=== PATIENT | male | born 1965 | race Caucasian/White ===

== ENCOUNTER 2017-02-27 20:22 | Emergency (ER) | payer OTHER ==
[2017-02-27 20:35] VITALS: BP 116/80; BMI 27.4
--- NOTE | 2017-02-27 22:03 | PDOC ---
History of Present Illness - General Chief Complaint: Cold Symptoms Stated Complaint: COUGH, WEAKNESS Time Seen by Provider: 02/27/17 20:45 - History of Present Illness Initial Comments: 02/27/17 21:54 CHIEF COMPLAINT: HISTORY OF PRESENT ILLNESS: No recent travel or sick contacts. PAST MEDICAL HISTORY: Denies past medical history FAMILY HISTORY: Denies SOCIAL HISTORY: Lives at home with ____. Occupation: . Denies tobacco, alcohol, illicit drug use. SURGICAL HISTORY: Denies ALLERGIES: No known drug allergies REVIEW OF SYSTEMS General/Constitutional: Denies fever or chills. Denies weakness, weight change. HEENT: Denies change in vision. Denies ear pain or discharge. Denies sore throat. Cardiovascular: Denies chest pain or shortness of breath. Respiratory: Denies cough, wheezing, or hemoptysis. Gastrointestinal: Denies nausea, vomiting, diarrhea or constipation. Denies rectal bleeding. Genitourinary: Denies dysuria, frequency, or change in urination. Musculoskeletal: Denies joint or muscle swelling or pain. Denies neck or back pain. Skin and breasts: Denies rash or easy bruising. Neurologic: Denies headache, vertigo, loss of consciousness, or loss of sensation. Psychiatric: Denies depression or anxiety. Endocrine: Denies increased thirst. Denies abnormal weight change. Hematologic/Lymphatic: Denies anemia, easy bleeding, or history of blood clots. Allergic/Immunologic: Denies hives or skin allergy. Denies latex allergy. PHYSICAL EXAM General Appearance: Well-appearing, appropriately dressed. No apparent distress , no intoxication. HEENT: EOMI, PERRLA, normal ENT inspection, normal voice, TMs normal, pharynx normal. No conjunctival pallor. No photophobia, scleral icterus. Neck: Supple. Trachea midline. No tenderness, rigidity, carotid bruit, stridor , lymphadenopathy, or thyromegaly. Respiratory/Chest: Lungs CTAB. No shortness of breath, chest tenderness, respiratory distress, accessory muscle use. No crackles, rales, rhonchi, stridor , wheezing, dullness Cardiovascular: RRR. S1, S2. No JVD, murmur, bradycardia, tachycardia. Vascular Pulses: Dorsalis-Pedis (R): 2+, Dorsalis-Pedis (L): 2+ Gastrointestinal/Abdominal: Normal bowel sounds. Abdomen soft, non-distended. No tenderness or rebound tenderness. No organomegaly, pulsatile mass, guarding , hernia, hepatomegaly, splenomegaly. Lymphatic: No adenopathy, tenderness. Musculoskeletal/Extremities: Normal inspection. FROM of all extremities, normal capillary refill. Pelvis Stable. No CVA tenderness. No tenderness to extremities, pedal edema, swelling, erythema or deformity. Integumentary: Appropriate color, dry, warm. 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 Fully oriented, alert. Appropriate mood/affect. Motor strength 5/5. No appreciable EOM palsy, facial droop or sensory deficit. Past History - Past Medical History Allergies/Adverse Reactions: Allergies Allergy/AdvReac Type Severity Reaction Status Date / Time amoxicillin [Amoxicillin] Allergy Mild Verified 02/27/17 20:30 ciprofloxacin [From Cipro] Allergy Verified 02/27/17 20:30 Home Medications: Ambulatory Orders Sodium Polystyrene Sulfon/Sorb [Kionex 15 gm/60 ml Suspension] 15 gm PO ASDIR Metoprolol Tartrate [Lopressor -] 25 mg PO BID 09/20/11 Aspirin [ASA -] 81 mg PO DAILY #0 tab.chew 11/16/12 Oseltamivir Phosphate [Tamiflu] 75 mg PO BID #10 capsule 02/27/17 Cardiac Disorders: Yes (mitral valve prolapse, muscular dystrophy, high potassium) HTN: Yes - Immunization History Immunization Up to Date: Yes - Suicide/Smoking/Psychosocial Hx Smoking Status: No Smoking History: Never smoked Have you smoked in the past 12 months: No Number of Cigarettes Smoked Daily: 0 Hx Alcohol Use: No Drug/Substance Use Hx: No Substance Use Type: None Hx Substance Use Treatment: No *Physical Exam - Vital Signs Last Vital Signs Temp Pulse Resp BP Pulse Ox 116/80 93 L 02/27/17 20:30 02/27/17 20:30 *DC/Admit/Observation/Transfer Diagnosis at time of Disposition: Influenza A - Discharge Dispostion Disposition: HOME Condition at time of disposition: Stable Admit: No - Prescriptions Prescriptions: Oseltamivir Phosphate [Tamiflu] 75 mg PO BID #10 capsule - Referrals Referrals: Sai Harkins MD [Primary Care Provider] - - Patient Instructions Printed Discharge Instructions: DI for Influenza -- Adult Additional Instructions: Please take medication as prescribed. Follow up with Dr. Harkins THIS WEEK for further monitoring. If you develop any fever unrelieved by Motrin or Tylenol, difficulty breathing, chest pain, vomiting, diarrhea, or any new or worsening symptoms, please return to the ER. - Post Discharge Activity
== END 2017-02-27 22:15 | disposition home or self-care (01) ==
LOC: JERFT 20:22
DX: J10.1 Influenza due to other identified influenza virus with other respiratory manifestations (principal); I10 Essential (primary) hypertension; G71.0 Muscular dystrophy
CPT/HCPCS: 87804; 99281-25

== ENCOUNTER 2018-10-24 15:36 | Emergency (ER) | payer OTHER ==
--- NOTE | 2018-10-24 15:42 | PDOC ---
Rapid Medical Evaluation Time Seen by Provider: 10/24/18 15:37 Medical Evaluation: Allergies Allergy/AdvReac Type Severity Reaction Status Date / Time amoxicillin [Amoxicillin] Allergy Mild Verified 02/27/17 20:30 ciprofloxacin [From Cipro] Allergy Verified 02/27/17 20:30 10/24/18 15:38 HPI: Mechanical fall at home No LOC nausea or vomiting PE:Superficial lac L eyebrow ORDERS: Nothing Discharge Disposition - Diagnosis Fall - Referrals - Patient Instructions - Post Discharge Activity
[2018-10-24 15:46] VITALS: BP 137/86; PULSE 82; TEMP 97.8; BMI 28.5
[2018-10-24] MEDS ORDERED: DIPHTH,PERTUSS(ACELL),TET 0.5 ML DISP.SYRIN IM ONE ×2 (17:08→17:23)
[2018-10-24] MEDS ORDERED: LIDOCAINE HCL 2% (50ML VIAL) SQ ONE (17:09)
--- NOTE | 2018-10-24 17:48 | PDOC ---
History of Present Illness - General Chief Complaint: Injury Stated Complaint: HEAD INJURY/LAC Time Seen by Provider: 10/24/18 15:37 History Source: Patient Exam Limitations: No Limitations - History of Present Illness Initial Comments: 10/24/18 17:43 56 yo M w/ a h/o muscular dystrophy, HTN, L eye blindness comes in for evaluation of L eyebrow laceration. He tripped over his sandals, landed on the floor face down, at home, witnessed by mother; hitting his L eyebrow on the concrete floor. No LOC, no dizziness, no Chest pain, no SOB before or after incident, it was purely a mechanical fall. No other injuries, no pain anywhere, no active bleeding. Pt not on AC Last tetanus unknown Past History - Past Medical History Allergies/Adverse Reactions: Allergies Allergy/AdvReac Type Severity Reaction Status Date / Time amoxicillin [Amoxicillin] Allergy Mild Verified 10/24/18 15:38 ciprofloxacin [From Cipro] Allergy Verified 10/24/18 15:38 Home Medications: Ambulatory Orders Metoprolol Tartrate [Lopressor -] 25 mg PO BID 09/20/11 Sodium Polystyrene Sulfonate [Kayexalate] 45 gm PO DAILY 10/24/18 Cardiac Disorders: Yes (mitral valve prolapse, , high potassium) COPD: No HTN: Yes Other medical history: muscular dystrophy - Immunization History Immunization Up to Date: Yes - Suicide/Smoking/Psychosocial Hx Smoking Status: No Smoking History: Never smoked Have you smoked in the past 12 months: No Number of Cigarettes Smoked Daily: 0 Information on smoking cessation initiated: No Hx Alcohol Use: No Drug/Substance Use Hx: No Substance Use Type: None Hx Substance Use Treatment: No Review of Systems - Review of Systems Able to Perform ROS?: Yes Constitutional: No: Chills, Fever, Malaise, Night Sweats HEENTM: No: Eye Pain, Recent change in vision, Throat Pain Respiratory: No: Cough, Shortness of Breath Cardiac (ROS): No: Chest Pain, Palpitations, Chest Tightness ABD/GI: No: Diarrhea, Nausea, Vomiting, Abdominal cramping : No: Dysuria, Hematuria Musculoskeletal: No: Back Pain Integumentary: No: Rash Neurological: No: Headache, Numbness, Dizziness Psychiatric: No: Change in Appetite Endocrine: No: Unexplained Weight Loss *Physical Exam - Vital Signs Last Vital Signs Temp Pulse Resp BP Pulse Ox 97.8 F 82 18 137/86 94 L 10/24/18 15:39 10/24/18 15:39 10/24/18 15:39 10/24/18 15:39 10/24/18 15:39 - Physical Exam General Appearance: Yes: Nourished. No: Apparent Distress HEENT: positive: Normal Voice, Other (L eye blindness, L eyebrow with 2cm partial thickness linear laceration with edges well approximated, no active bleeding now, (+)superior small abrasion. No periorbital edema/erythema/ tenderness). negative: Pale Conjunctivae, Scleral Icterus (R), Scleral Icterus (L) Neck: positive: Supple. negative: Decreased range of motion, Tender midline Respiratory/Chest: negative: Respiratory Distress, Accessory Muscle Use Cardiovascular: positive: Regular Rate Musculoskeletal: positive: Normal Inspection. negative: Decreased Range of Motion Integumentary: positive: Normal Color, Dry. negative: Jaundice, Rash Neurologic: positive: Fully Oriented, Alert, Normal Mood/Affect Procedures - Laceration/Wound Repair Left Face Wound Length: to 2.5 cm Wound Explored: clean Wound's Depth, Shape: into muscle, linear Irrigated w/ Saline: Yes Betadine Prep: Yes Anesthesia: 1% Lidocaine Amount of Anesthetic (ccs): 1 Wound Repaired With: Sutures Suture Size/Type: 6:0 Number of Sutures: 3 Layer Closure: No Sterile Dressing Applied: Yes ED Treatment Course - Medications Given in the ED: ED Medications Discontinued Medications Generic Name Dose Route Start Last Admin Trade Name Blakeq PRN Reason Stop Dose Admin Diphtheria/Tetanus/Acell Pertussis 0.5 ml 10/24/18 17:08 10/24/18 17:31 Boostrix - IM 10/24/18 17:09 0.5 ml .ONCE ONE Administration Lidocaine HCl 1 mg 10/24/18 17:09 10/24/18 17:25 Xylocaine 2% SQ 10/24/18 17:10 1 mg ONCE ONE Administration Medical Decision Making - Medical Decision Making 10/24/18 17:48 53 yo M w/ L eyebrow laceration s/p trip anf fall, purely mechanical. Pt not on AC, no LOC, no hematoma, no indication for head CT. 2cm lac repaired using three 6-0 nylon simple interrupted sutures. Keep the wound clean and dry at all times REturn for worsening/concerning symptoms Return in 5 days for suture removal Bacitracin for the first 24-48hrs only Pt verbalizes understanding and agrees with plan 10/24/18 18:26 *DC/Admit/Observation/Transfer Diagnosis at time of Disposition: Immunization, tetanus toxoid Fall Qualifiers: Encounter type: initial encounter Qualified Code(s): W19.XXXA - Unspecified fall, initial encounter Eyebrow laceration Qualifiers: Encounter type: initial encounter Laterality: left Qualified Code(s): S01.112A - Laceration without foreign body of left eyelid and periocular area, initial encounter - Discharge Dispostion Disposition: HOME Condition at time of disposition: Stable - Referrals Referrals: Sai Harkins MD [Primary Care Provider] - - Patient Instructions Printed Discharge Instructions: DI for Laceration Repair Additional Instructions: Make a follow up appointment with your PMD, return in 5 days for suture removal. Keep the wound clean and dry at all times. APply bacitracin only for the first 48 hours. Return for worsening/concerning symptoms. - Post Discharge Activity
== END 2018-10-24 17:55 | disposition home or self-care (01) ==
LOC: JERFT 15:36
PROC: 0JQ10ZZ Repair Face Subcutaneous Tissue and Fascia, Open Approach (ICD-10-PCS; principal; 2018-10-24)
PROC: 3E0234Z Introduction of Serum, Toxoid and Vaccine into Muscle, Percutaneous Approach (ICD-10-PCS; 2018-10-24)
PROC: 3E023BZ Introduction of Anesthetic Agent into Muscle, Percutaneous Approach (ICD-10-PCS; 2018-10-24)
PROC: 3E0234Z Introduction of Serum, Toxoid and Vaccine into Muscle, Percutaneous Approach (ICD-10-PCS; 2018-10-24)
DX: S01.112A Laceration without foreign body of left eyelid and periocular area, initial encounter (principal); W01.198A Fall on same level from slipping, tripping and stumbling with subsequent striking against other object, initial encounter; Y93.89 Activity, other specified; Y92.038 Other place in apartment as the place of occurrence of the external cause; Y99.8 Other external cause status; G71.00 Muscular dystrophy, unspecified; H54.62 Unqualified visual loss, left eye, normal vision right eye; I10 Essential (primary) hypertension
CPT/HCPCS: 12011-25; 90471; 90715; 96372; 99281-25

== ENCOUNTER 2018-10-29 10:12 | Emergency (ER) | payer OTHER ==
[2018-10-29 10:20] VITALS: BP 145/84; PULSE 63; TEMP 98; BMI 28.1
--- NOTE | 2018-10-29 11:13 | PDOC ---
Suture Removal/Wound Check HPI - History of Present Illness Chief Complaint: Suture/Staple Removal(Here) Stated Complaint: STITCHES REMOVAL Time Seen by Provider: 10/29/18 10:57 Date of Last ED visit: 10/24/18 - Previous ED Treatment Type of procedure performed on last visit: Yes: Laceration Repair Tetanus Immunization: Yes: Given at last ED visit Antibiotics Prescribed: No - Onset of Previous Treatment Date of Occurence: 10/24/18 Comment:: 10/29/18 11:14 Wound well-approximated, no erythema, swelling, tenderness to suture site. 3 stitches removed without complications. Past History - Past Medical History Allergies/Adverse Reactions: Allergies Allergy/AdvReac Type Severity Reaction Status Date / Time amoxicillin [Amoxicillin] Allergy Mild Verified 10/29/18 10:20 ciprofloxacin [From Cipro] Allergy Verified 10/29/18 10:20 Home Medications: Ambulatory Orders Metoprolol Tartrate [Lopressor -] 25 mg PO BID 09/20/11 Sodium Polystyrene Sulfonate [Kayexalate] 45 gm PO DAILY 10/24/18 Cardiac Disorders: Yes (mitral valve prolapse, , high potassium) COPD: No HTN: Yes - Immunization History Immunization Up to Date: Yes - Suicide/Smoking/Psychosocial Hx Smoking Status: No Smoking History: Never smoked Have you smoked in the past 12 months: No Number of Cigarettes Smoked Daily: 0 Hx Alcohol Use: No Drug/Substance Use Hx: No Substance Use Type: None Hx Substance Use Treatment: No *Physical Exam - Vital Signs Last Vital Signs Temp Pulse Resp BP Pulse Ox 98 F 63 18 145/84 97 10/29/18 10:16 10/29/18 10:16 10/29/18 10:16 10/29/18 10:16 10/29/18 10:16 *DC/Admit/Observation/Transfer Diagnosis at time of Disposition: Visit for suture removal - Discharge Dispostion Disposition: HOME Condition at time of disposition: Stable Decision to Admit order: No - Referrals - Patient Instructions Printed Discharge Instructions: DI for Suture Removal - Post Discharge Activity
== END 2018-10-29 11:29 | disposition home or self-care (01) ==
LOC: JERFT 10:12
DX: Z48.817 Encounter for surgical aftercare following surgery on the skin and subcutaneous tissue (principal); Z48.02 Encounter for removal of sutures
CPT/HCPCS: 99281-25

== ENCOUNTER 2020-05-13 20:25 | Inpatient (IN) | payer OTHER ==
[2020-05-13] MEDS ORDERED: ACETAMINOPHEN 500 MG TABLET (FP) PO ONE (21:02)
[2020-05-13] MEDS ORDERED: DEXAMETHASONE SOD PHOSPHATE 4 MG/1 ML VIAL IVPUSH ONE (21:02)
[2020-05-13] MEDS ORDERED: DEXAMETHASONE SOD PHOSPHATE 10 MG/1 ML VIAL ONE (21:30)
[2020-05-13] MEDS ORDERED: ACETAMINOPHEN 325 MG TABLET (FP) ONE (21:30)
[2020-05-13] MEDS ORDERED: SODIUM CHLORIDE 1,000 ML IV STA (21:33)
[2020-05-13 21:54] LABS: BASO % 0.1 % (0-2.0); EOS % 0.1 % (0-4.5); HEMATOCRIT 45.5 % (35.4-49); HEMOGLOBIN 14.7 GM/dL (11.7-16.9); LYMPH % 12.5 % (8-40); MCH 25.9 pg (25.7-33.7); MCHC 32.3 g/dl (32.0-35.9); MEAN CELL VOLUME 80.2 fl (80-96); MEAN PLT VOLUME 10.4 fl (7.5-11.1); MONO % 5.7 % (3.8-10.2); NEUT % 81.6 % (42.8-82.8); PLATELET COUNT 163 K/MM3 (134-434); RBC 5.67 M/mm3 (4.00-5.60); RDW 14.4 % (11.9-15.9)
[2020-05-13 22:02] LABS: INR 1.15 (0.83-1.09); PROTHROMBIN TIME (PATIENT) 13.8 SEC (9.7-13.0)
[2020-05-13 22:26] LABS: LDH 556 U/L (87-246)
[2020-05-13 22:28] LABS: VENOUS O2 SATURATION 74.3 % (70-80); VENOUS PCO2 46.9 mmHg (38-52); VENOUS PH 7.36 (7.310-7.410)
[2020-05-13 22:37] LABS: ALBUMIN 3.3 g/dl (3.4-5.0); ALK PHOS 178 U/L (45-117); ANION GAP 5 MMOL/L (8-16); BILIRUBIN,DIRECT 0.3 mg/dL (0.0-0.2); BILIRUBIN,TOTAL 0.5 mg/dL (0.2-1); BLOOD UREA NITROGEN 14.7 mg/dL (7-18); CALCIUM 8.3 mg/dL (8.5-10.1); CHLORIDE 106 mmol/L (98-107); CO2 28 mmol/L (21-32); CREATININE 0.7 mg/dL (0.55-1.3); GLUCOSE,RANDOM 116 mg/dL (74-106); POTASSIUM 4.2 mmol/L (3.5-5.1); SGOT/AST 111 U/L (15-37); SGPT/ALT 73 U/L (13-61); SODIUM 139 mmol/L (136-145); TOT PROT 6.7 g/dl (6.4-8.2)
[2020-05-13] MEDS ORDERED: ENOXAPARIN NA (PORCINE) 60 MG/0.6 ML DISP.SYRIN SQ SCH (23:15)
[2020-05-14] MEDS: ENOXAPARIN NA (PORCINE) 80 MG/0.8 ML DISP.SYRIN SQ SCH ×3 (01:04→21:33)
[2020-05-14 02:04] LABS: EPI CELLS 22 /uL (0-25.1); HYALINE CASTS 14 /uL (0-3.1); PH,URINE 5.5 (5.0-8.0); URINE APPEARANCE CLOUDY; URINE BACTERIA 12 /uL (0-1359); URINE BILIRUBIN 2+ (NEGATIVE); URINE COLOR DK YELLOW; URINE GLUCOSE (UA) NEGATIVE (NEGATIVE); URINE KETONE TRACE (NEGATIVE); URINE LEUK ESTERASE NEGATIVE (NEGATIVE); URINE NITRITE NEGATIVE (NEGATIVE); URINE PROTEIN 2+ (NEGATIVE); URINE RBC 14 /uL (0-23.9); URINE WBC 17 /uL (0-25.8)
[2020-05-14 06:29] LABS: BASO % 0.2 % (0-2.0); HEMATOCRIT 42.3 % (35.4-49); HEMOGLOBIN 13.8 GM/dL (11.7-16.9); LYMPH % 13.6 % (8-40); MCH 26.1 pg (25.7-33.7); MCHC 32.6 g/dl (32.0-35.9); MEAN CELL VOLUME 80.3 fl (80-96); MEAN PLT VOLUME 9.3 fl (7.5-11.1); MONO % 2.3 % (3.8-10.2); NEUT % 83.9 % (42.8-82.8); PLATELET COUNT 148 K/MM3 (134-434); RBC 5.26 M/mm3 (4.00-5.60); RDW 14.4 % (11.9-15.9); WHITE BLOOD COUNT 2.1 K/mm3 (4.0-10.0)
[2020-05-14 07:05] LABS: POTASSIUM 4.4 mmol/L (3.5-5.1)
[2020-05-14 07:09] LABS: ALBUMIN 2.8 g/dl (3.4-5.0); BLOOD UREA NITROGEN 15.3 mg/dL (7-18); CALCIUM 8.1 mg/dL (8.5-10.1)
[2020-05-14 07:11] LABS: MAGNESIUM 2.3 mg/dL (1.8-2.4)
[2020-05-14 07:12] LABS: CREATININE 0.6 mg/dL (0.55-1.3)
[2020-05-14 07:15] LABS: BILIRUBIN,TOTAL 0.6 mg/dL (0.2-1); TOT PROT 5.9 g/dl (6.4-8.2)
[2020-05-14] MEDS ORDERED: PT OWN MED DRAWER 7, Y5N ONE (08:46)
[2020-05-14] MEDS: ASCORBIC ACID 500 MG TABLET (FP) PO SCH ×2 (10:02→21:33)
[2020-05-14] MEDS: ZINC SULFATE 220 MG CAPSULE (FP) PO SCH (10:02)
[2020-05-14] MEDS: METOPROLOL TARTRATE 25 MG TABLET (FP) PO SCH ×2 (10:02→21:33)
[2020-05-14] MEDS: CHOLECALCIFEROL (VIT D3) 5000 UNITS (125 MCG) CAP PO SCH (10:03)
[2020-05-14] MEDS: DEXAMETHASONE SOD PHOSPHATE 4 MG/1 ML VIAL IVPUSH SCH (10:03)
[2020-05-14] MEDS: FAMOTIDINE 20 MG TABLET PO SCH ×3 (10:04→21:33)
[2020-05-14] MEDS ORDERED: REMDESIVIR 200 MG in SODIUM CHLORIDE 210 ML IVPB ONE (15:00)
[2020-05-14] MEDS ORDERED: ACETAMINOPHEN 325 MG TABLET (FP) PO PRN (15:16)
[2020-05-15 07:35] LABS: HEMATOCRIT 44.1 % (35.4-49); HEMOGLOBIN 14.2 GM/dL (11.7-16.9); MCH 25.9 pg (25.7-33.7); MCHC 32.1 g/dl (32.0-35.9); MEAN CELL VOLUME 80.7 fl (80-96); MEAN PLT VOLUME 10.2 fl (7.5-11.1); PLATELET COUNT 196 K/MM3 (134-434); RBC 5.47 M/mm3 (4.00-5.60); RDW 14.1 % (11.9-15.9); WHITE BLOOD COUNT 4.3 K/mm3 (4.0-10.0)
[2020-05-15 07:49] LABS: POTASSIUM 5.1 mmol/L (3.5-5.1)
[2020-05-15 07:59] LABS: CALCIUM 8.7 mg/dL (8.5-10.1)
[2020-05-15 08:00] LABS: BLOOD UREA NITROGEN 15.2 mg/dL (7-18)
[2020-05-15 08:04] LABS: BILIRUBIN,TOTAL 0.4 mg/dL (0.2-1); CREATININE 0.5 mg/dL (0.55-1.3); TOT PROT 6.2 g/dl (6.4-8.2)
[2020-05-15] MEDS ORDERED: PT OWN MED DRAWER 7, Y5N ONE (08:56)
[2020-05-15] MEDS: ENOXAPARIN NA (PORCINE) 80 MG/0.8 ML DISP.SYRIN SQ SCH ×2 (09:45→21:11)
[2020-05-15] MEDS: ZINC SULFATE 220 MG CAPSULE (FP) PO SCH (09:45)
[2020-05-15] MEDS: ASCORBIC ACID 500 MG TABLET (FP) PO SCH ×2 (09:45→21:11)
[2020-05-15] MEDS: FAMOTIDINE 20 MG TABLET PO SCH ×2 (09:45→21:11)
[2020-05-15] MEDS: CHOLECALCIFEROL (VIT D3) 5000 UNITS (125 MCG) CAP PO SCH (09:45)
[2020-05-15] MEDS: METOPROLOL TARTRATE 25 MG TABLET (FP) PO SCH ×2 (09:45→21:11)
[2020-05-15] MEDS: DEXAMETHASONE SOD PHOSPHATE 4 MG/1 ML VIAL IVPUSH SCH (09:46)
[2020-05-15 13:19] VITALS: BMI 27.4
[2020-05-15] MEDS: REMDESIVIR 100 MG in SODIUM CHLORIDE 230 ML IVPB SCH (16:34)
[2020-05-16 07:40] LABS: HEMATOCRIT 42.6 % (35.4-49); HEMOGLOBIN 13.8 GM/dL (11.7-16.9); MCH 26.2 pg (25.7-33.7); MCHC 32.4 g/dl (32.0-35.9); MEAN CELL VOLUME 80.8 fl (80-96); PLATELET COUNT 205 K/MM3 (134-434); RBC 5.27 M/mm3 (4.00-5.60); RDW 14.1 % (11.9-15.9); WHITE BLOOD COUNT 2.9 K/mm3 (4.0-10.0)
[2020-05-16 07:58] LABS: ALBUMIN 2.8 g/dl (3.4-5.0); BILIRUBIN,TOTAL 0.5 mg/dL (0.2-1); BLOOD UREA NITROGEN 20.1 mg/dL (7-18); CALCIUM 8.3 mg/dL (8.5-10.1); TOT PROT 5.7 g/dl (6.4-8.2)
[2020-05-16 08:00] LABS: CREATININE 0.5 mg/dL (0.55-1.3)
[2020-05-16] MEDS: DEXAMETHASONE SOD PHOSPHATE 4 MG/1 ML VIAL IVPUSH SCH (10:21)
[2020-05-16] MEDS: ASCORBIC ACID 500 MG TABLET (FP) PO SCH ×2 (10:24→21:10)
[2020-05-16] MEDS: ZINC SULFATE 220 MG CAPSULE (FP) PO SCH (10:24)
[2020-05-16] MEDS: FAMOTIDINE 20 MG TABLET PO SCH ×2 (10:24→21:10)
[2020-05-16] MEDS: METOPROLOL TARTRATE 25 MG TABLET (FP) PO SCH ×2 (10:24→21:10)
[2020-05-16] MEDS: CHOLECALCIFEROL (VIT D3) 5000 UNITS (125 MCG) CAP PO SCH (10:24)
[2020-05-16] MEDS: ENOXAPARIN NA (PORCINE) 80 MG/0.8 ML DISP.SYRIN SQ SCH ×2 (10:24→21:10)
[2020-05-16 12:20] LABS: POTASSIUM 4.2 mmol/L (3.5-5.1)
[2020-05-16 12:22] LABS: ALBUMIN 2.7 g/dl (3.4-5.0); BLOOD UREA NITROGEN 22.8 mg/dL (7-18); CALCIUM 8.5 mg/dL (8.5-10.1)
[2020-05-16 12:25] LABS: CREATININE 0.5 mg/dL (0.55-1.3)
[2020-05-16 12:27] LABS: BILIRUBIN,TOTAL 0.4 mg/dL (0.2-1); TOT PROT 5.6 g/dl (6.4-8.2)
[2020-05-16] MEDS: REMDESIVIR 100 MG in SODIUM CHLORIDE 230 ML IVPB SCH (15:04)
[2020-05-17 07:58] LABS: BASO % 0.1 % (0-2.0); HEMATOCRIT 41.9 % (35.4-49); HEMOGLOBIN 13.7 GM/dL (11.7-16.9); LYMPH % 13.6 % (8-40); MCHC 32.8 g/dl (32.0-35.9); MEAN CELL VOLUME 79.2 fl (80-96); MONO % 14.9 % (3.8-10.2); NEUT % 71.4 % (42.8-82.8); PLATELET COUNT 229 K/MM3 (134-434); RBC 5.29 M/mm3 (4.00-5.60); RDW 14.2 % (11.9-15.9); WHITE BLOOD COUNT 3.3 K/mm3 (4.0-10.0)
[2020-05-17 08:16] LABS: POTASSIUM 4.4 mmol/L (3.5-5.1)
[2020-05-17 08:25] LABS: BILIRUBIN,TOTAL 0.4 mg/dL (0.2-1)
[2020-05-17 08:26] LABS: TOT PROT 5.6 g/dl (6.4-8.2)
[2020-05-17 08:27] LABS: ALBUMIN 2.7 g/dl (3.4-5.0); BLOOD UREA NITROGEN 19.1 mg/dL (7-18); CALCIUM 8.4 mg/dL (8.5-10.1)
[2020-05-17 08:29] LABS: CREATININE 0.5 mg/dL (0.55-1.3)
[2020-05-17] MEDS ORDERED: PT OWN MED DRAWER 7, Y5N ONE (09:05)
[2020-05-17] MEDS: DEXAMETHASONE SOD PHOSPHATE 4 MG/1 ML VIAL IVPUSH SCH (10:32)
[2020-05-17] MEDS: CHOLECALCIFEROL (VIT D3) 5000 UNITS (125 MCG) CAP PO SCH (10:33)
[2020-05-17] MEDS: ENOXAPARIN NA (PORCINE) 80 MG/0.8 ML DISP.SYRIN SQ SCH ×2 (10:33→22:29)
[2020-05-17] MEDS: ASCORBIC ACID 500 MG TABLET (FP) PO SCH ×2 (10:33→22:29)
[2020-05-17] MEDS: FAMOTIDINE 20 MG TABLET PO SCH ×2 (10:33→22:29)
[2020-05-17] MEDS: METOPROLOL TARTRATE 25 MG TABLET (FP) PO SCH ×2 (10:33→22:29)
[2020-05-17] MEDS: ZINC SULFATE 220 MG CAPSULE (FP) PO SCH (10:33)
[2020-05-17] MEDS: REMDESIVIR 100 MG in SODIUM CHLORIDE 230 ML IVPB SCH (14:11)
[2020-05-18 07:53] LABS: HEMATOCRIT 43.9 % (35.4-49); HEMOGLOBIN 14.4 GM/dL (11.7-16.9); MCH 26.2 pg (25.7-33.7); MCHC 32.9 g/dl (32.0-35.9); MEAN CELL VOLUME 79.7 fl (80-96); MEAN PLT VOLUME 10.2 fl (7.5-11.1); PLATELET COUNT 232 K/MM3 (134-434); RBC 5.51 M/mm3 (4.00-5.60); RDW 14.2 % (11.9-15.9); WHITE BLOOD COUNT 3.7 K/mm3 (4.0-10.0)
[2020-05-18 08:16] LABS: POTASSIUM 4.9 mmol/L (3.5-5.1)
[2020-05-18 08:21] LABS: CALCIUM 8.5 mg/dL (8.5-10.1)
[2020-05-18 08:22] LABS: ALBUMIN 2.9 g/dl (3.4-5.0); BLOOD UREA NITROGEN 17.9 mg/dL (7-18)
[2020-05-18 08:25] LABS: CREATININE 0.5 mg/dL (0.55-1.3)
[2020-05-18 08:26] LABS: BILIRUBIN,TOTAL 0.5 mg/dL (0.2-1)
[2020-05-18 08:27] LABS: TOT PROT 5.7 g/dl (6.4-8.2)
[2020-05-18] MEDS ORDERED: PT OWN MED DRAWER 7, Y5N ONE (09:15)
[2020-05-18] MEDS: ENOXAPARIN NA (PORCINE) 80 MG/0.8 ML DISP.SYRIN SQ SCH (09:27)
[2020-05-18] MEDS: ZINC SULFATE 220 MG CAPSULE (FP) PO SCH (09:28)
[2020-05-18] MEDS: CHOLECALCIFEROL (VIT D3) 5000 UNITS (125 MCG) CAP PO SCH (09:28)
[2020-05-18] MEDS: METOPROLOL TARTRATE 25 MG TABLET (FP) PO SCH (09:28)
[2020-05-18] MEDS: FAMOTIDINE 20 MG TABLET PO SCH (09:28)
[2020-05-18] MEDS: ASCORBIC ACID 500 MG TABLET (FP) PO SCH (09:28)
[2020-05-18] MEDS: DEXAMETHASONE SOD PHOSPHATE 4 MG/1 ML VIAL IVPUSH SCH (09:29)
[2020-05-18] MEDS: REMDESIVIR 100 MG in SODIUM CHLORIDE 230 ML IVPB SCH (14:11)
[2020-05-18 19:49] VITALS: BP 112/50; PULSE 66; TEMP 98
== END 2020-05-18 20:00 | DRG 177 ==
LOC: JER 20:25 → JERBED 22:07 → J4W 05-14 04:35
PROVIDERS: ADMIT Internal Medicine; ATTEND Internal Medicine
PROC: XW033E5 Introduction of Remdesivir Anti-infective into Peripheral Vein, Percutaneous Approach, New Technology Group 5 (ICD-10-PCS; principal; 2020-05-14)
DX: U07.1 COVID-19 (principal); J12.82 Pneumonia due to coronavirus disease 2019; J96.01 Acute respiratory failure with hypoxia; I24.8 Other forms of acute ischemic heart disease; I10 Essential (primary) hypertension; G71.00 Muscular dystrophy, unspecified; R94.5 Abnormal results of liver function studies; E78.5 Hyperlipidemia, unspecified; R53.1 Weakness; I45.10 Unspecified right bundle-branch block
CPT/HCPCS: 36415; 70450-TC; 71045-TC-FY; 80053; 81003; 82248; 82308; 82550; 82553; 82728; 82803; 83605; 83615; 83735; 84484; 85025; 85027; 85379; 85384; 85610; 85730; 86140; 86769; 87040; 87086; 87186; 87804; 93005; 93010; 94761; 97116-GP; 97162-GP; 99285-25; C9399; C9803; U0003; U0005

== ENCOUNTER 2020-08-12 16:06 | Emergency (ER) | payer OTHER ==
[2020-08-12 16:33] VITALS: BP 153/90; PULSE 82; TEMP 98.5; BMI 26.9
[2020-08-12] MEDS ORDERED: IBUPROFEN 600 MG TABLET (FP) PO ONE (17:22)
== END 2020-08-12 17:54 | disposition home or self-care (01) ==
LOC: JER 16:06 → JERFT 16:06
PROC: 0HQ1XZZ Repair Face Skin, External Approach (ICD-10-PCS; principal; 2020-08-12)
DX: S01.112A Laceration without foreign body of left eyelid and periocular area, initial encounter (principal); S09.90XA Unspecified injury of head, initial encounter
CPT/HCPCS: 99283-25

== ENCOUNTER 2020-08-19 14:26 | Emergency (ER) | payer OTHER ==
[2020-08-19 14:35] VITALS: BP 137/91; PULSE 78; TEMP 98; BMI 26.6
== END 2020-08-19 15:20 | disposition home or self-care (01) ==
LOC: JERFT 14:26
DX: Z48.02 Encounter for removal of sutures (principal)
CPT/HCPCS: 99281-25

== ENCOUNTER 2024-09-23 10:51 | Emergency (ER) | payer OTHER ==
[2024-09-23 11:12] VITALS: BP 123/100; PULSE 54; RESP 20; TEMP 98.4; BMI 25.8
[2024-09-23] MEDS ORDERED: IBUPROFEN 400 MG TABLET (FP) PO ONE (12:14)
[2024-09-23] MEDS ORDERED: ACETAMINOPHEN 500 MG TABLET (FP) ONE (12:15)
[2024-09-23] MEDS: ACETAMINOPHEN 500 MG TABLET (FP) PO ONE (12:19)
[2024-09-23] MEDS: IBUPROFEN 400 MG TABLET (FP) PO ONE (12:19)
== END 2024-09-23 13:46 | disposition home or self-care (01) ==
LOC: JERFT 10:51
DX: G44.309 Post-traumatic headache, unspecified, not intractable (principal); M54.2 Cervicalgia; M79.602 Pain in left arm; W01.0XXA Fall on same level from slipping, tripping and stumbling without subsequent striking against object, initial encounter
CPT/HCPCS: 99283-25